=== PATIENT | female | born 1950 | race Caucasian/White ===

== ENCOUNTER 2024-12-11 11:21 | Emergency (ER) | payer OTHER, MEDICARE, SELFPAY ==
[2024-12-11 11:22] VITALS: BP 160/106; PULSE 104; RESP 17; TEMP 36.6; O2SAT 98; BMI 32.1
--- NOTE | 2024-12-11 11:32 | XR_ITS ---
WS: [id number] Exam: XR chest 1V portable [id number] Date/Time of Exam: 12/11/2024 12:04 PM Reason For Exam: weakness No priors. The lungs are clear and fully inflated. Moderate elevation of the RIGHT diaphragm. Normal cardiomedia stinal silhouette. No pleural effusion. Bony structures are intact. Anchoring screw in the LEFT humer al head. XR/XR chest 1V portable [id number] IMPRESSION: 1. Moderate elevation of the RIGHT diaphragm. No acute cardiopulmonary process identified otherwise.
--- NOTE | 2024-12-11 11:33 | ECG_ITS ---
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 Measurements Intervals [place] Rate: 91 P: -9 ID: [id number] QRS: 43 QRSD: 83 T: 68 QT: 344 QTc: 425 Interpretive Statements SINUS RHYTHM No previous ECG available for comparison Electronically Signed On 12-11-2024 12:39:52 CHEMICAL TESTER by Jhoan Bond M.D. [email or web address]
--- NOTE | 2024-12-11 11:35 | ED_ITS ---
HPI - Allergic Reaction 2 General: Chief complaint: Allergic Reaction Stated complaint: allergic reaction Time Seen by Provider: 12/11/24 11:22 Source: patient and EMS Mode of arrival: EMS Limitations: no limitations History of Present Illness: HPI narrative: 74-year-old female who states that she b een admitted to [facility] [place] last week she states there originally were concerned about possible stroke but of diagnosed with a migraine with aura she states it also diagnosed with a UTI states she was recently discharged and started on cefdinir states she took her first dose of cefdinir today like she is having allergic reaction states she had felt flush burning sensation all over having a headache some mild dyspnea she denies any vomiting or diarrhea or rash. She is answering all my questions appropriately here. Associated symptoms: Deny abdominal pain, nausea or vomiting Related Data Home Medications Medication Instructions Recorded Confirmed albuterol sulfate 90 mcg/actuation 2 puff inhalation DAILY 12/11/24 12/11/24 aerosol inhaler alendronate 70 mg tablet 70 mg PO Q7D 12/11/24 12/11/24 cefdinir 300 mg capsule 300 mg PO BID 12/11/24 12/11/24 clopidogrel 75 mg tablet 75 mg PO DAILY 12/11/24 12/11/24 cyanocobalamin (vitamin B-12) 1,000 mcg IM Q3M 12/11/24 12/11/24 1,000 mcg/mL injection solution esomeprazole magnesium 40 mg 40 mg PO DAILY 12/11/24 12/11/24 capsule,delayed release fluoxetine 40 mg capsule 40 mg PO DAILY 12/11/24 12/11/24 furosemide 80 mg tablet 80 mg PO DAILY 12/11/24 12/11/24 gabapentin 400 mg capsule 400 mg PO DAILY 12/11/24 12/11/24 levetiracetam 250 mg tablet 250 mg PO BID 12/11/24 12/11/24 methocarbamol 500 mg tablet 500 mg PO TID PRN Muscle Spasm 12/11/24 12/11/24 metoprolol tartrate 25 mg tablet 25 mg PO DAILY 12/11/24 12/11/24 pramipexole 0.75 mg tablet 0.75 mg PO TID 12/11/24 12/11/24 Previous Rx's Medication Instructions Recorded nitrofurantoin 100 mg PO BID 7 days #14 caps 01/30/25 monohydrate/macrocrystals 100 mg capsule (Macrobid) Allergies Allergy/AdvReac Type Severity Reaction Status Date / Time cephalexin [From Keflex] Allergy ALGY-Rash Verified 12/11/24 11:28 Review of Systems 2 Const: Denies: fever(s), chills, body aches or change in appetite ENMT: Denies: throat pain or dental pain Card: Denies: chest pain Resp: Reports: dyspnea GI: Denies: abdominal pain, nausea, vomiting or diarrhea Musc: Denies: neck pain or back pain Skin/Breast: Denies: rash Neuro: Denies: headache(s) Physical Exam 2 Const: COMMON NORMALS: no acute distress, patient oriented x3 and healthy appearing HENMT: COMMON NORMALS: normocephalic and atraumatic HEAD & SCALP: n ormocephalic and atraumatic Eye: COMMON NORMALS: Equal, round and reactive pupils present and EOMs intact bilaterally PUPIL: Yes Equal, round and reactive pupils present Neck/C-Spine: COMMON NORMALS: full ROM and supple Chest: COMMONS NORMALS: normal inspection of the chest and normal palpation of entire chest wall Resp: COMMON NORMALS: normal respiratory effort, No retractions, No use of accessory muscles and clear to auscultation bilaterally AUSCULTATION: clear to auscultation bilaterally Cardio: COMMON NORMALS: regular rate, regular rhythm and No murmurs present (Cardio) RATE: regular rate RHYTHM: regular rhythm GI: COMMON NORMALS: Normal to inspection, nondistended, normoactive bowel sounds present, Soft to palpation, non-tender and no masses PALPATION: Yes Soft to palpation Extremity: COMMON NORMALS: normal to inspection and full ROM Neuro: COMMON NORMALS: patient oriented x3, moves all extremities and no focal motor deficits Psych: COMMON NORMALS: mental status grossly normal, Normal thought process present and cooperative THOUGHT PROCESS: Normal thought process present Skin: COMMON NORMALS: no rashes or lesions noted and no wounds GENERAL SKIN EXAM: no rashes or lesions noted Course 2 Vital Signs: Vital signs: Vital Signs Temperature 97.9 F 12/11/24 11:22 Pulse Rate 104 H 12/11/24 11:22 Respiratory Rate 17 12/11/24 11:22 Blood Pressure 160/106 12/11/24 11:22 Pulse Oximetry 98 12/11/24 11:22 Oxygen Delivery Me thod Room Air 12/11/24 11:22 MDM - Allergic Reaction Medical Decision Making Patient presents here with likely allergic reaction to cefdinir she has a known allergy to Keflex she feels much improved here we will prescribe her Macrobid for UTI she is to stop the cefdinir she stable for discharge follow-up with PCP return if worsening she has no signs of acute stroke. Medical Records I reviewed the patient's medical records. Lab Data I reviewed the patient's lab results. 12/11/24 12:07 12/11/24 12:07 Radiology Impressions Chest X-Ray 12/11/24 11:32 IMPRESSION: 1. Moderate elevation of the RIGHT diaphragm. No acute cardiopulmonary process identified otherwise. Laboratory Results WBC 4.81 10^3/uL (3.29-11.43) 12/11/24 12:07 RBC 4.17 10^6/uL (3.85-5.65) 12/11/24 12:07 Hgb 11.90 g/dL (11.27-16.99) 12/11/24 12:07 Hct 36.5 % (36-47) 12/11/24 12:07 MCV 87.5 fl (85-98) 12/11/24 12:07 MCH 28.5 pg (27-33) 12/11/24 12:07 MCHC 32.6 g/dL (30-55) 12/11/24 12:07 RDW 13.4 % (12.1-15.1) 12/11/24 12:07 Plt Count 153 10^3/cmm (157-399) L 12/11/24 12:07 MPV 9.8 fL (7.4-10.4) 12/11/24 12:07 Neut % (Auto) 64.2 % 12/11/24 12:07 Lymph % (Auto) 25.6 % 12/11/24 12:07 Hughes % (Auto) 7.3 % 12/11/24 12:07 Eos % (Auto) 2.3 % 12/11/24 12:07 Baso % (Auto) 0.6 % 12/11/24 12:07 Neut # (Auto) 3.09 10^3/uL (1.8-7.7) 12/11/24 12:07 Lymph # (Auto) 1.2 10^3/uL (0.8-4.8) 12/11/24 12:07 Hughes # (Auto) 0.4 10^3/uL (0.2-0.9) 12/11/24 12:07 Eos # (Auto) 0.1 10^3/uL (0.0-0.8) 12/11/24 12:07 Baso # (Auto) 0.0 10^3/uL (0.0-0.1) 12/11/24 12:07 Nucleated RBC % (auto) 0 % 12/11/24 12:07 Nucleated RBCs # 0.0 /100WBC 12/11/24 12:07 Sodium 136 mmol/L (136-145) 12/11/24 12:07 Potassium 3.9 mmol/L (3.5-5.1) 12/11/24 12:07 Chloride 101 mmol/L (98-107) 12/11/24 12:07 Carbon Dioxide 24 mmol/L (22-29) 12/11/24 12:07 Anion Gap 14.9 (5-19) 12/11/24 12:07 BUN 9 mg/dL (8-23) 12/11/24 12:07 Creatinine 0.6 mg/dL (0.5-0.9) 12/11/24 12:07 GFR Calculation Not Reportable 12/11/24 12:07 Glucose 140 mg/dL (65-115) H 12/11/24 12:07 Calculated Osmolality 283 mOsm/kg (285-295) L 12/11/24 12:07 Calcium 8.7 mg/dL (8.5-10.5) 12/11/24 12:07 Total Bilirubin 0.2 mg/dL (0.15-1.2) 12/11/24 12:07 AST 14 U/L (0-32) 12/11/24 12:07 ALT 7 U/L (0-33) 12/11/24 12:07 Alkaline Phosphatase 92 U/L (35-105) 12/11/24 12:07 Total Protein 6.6 g/dL (6.6-8.7) 12/11/24 12:07 Albumin 3.6 g/dL (3.5-5.2) 12/11/24 12:07 Globulin 3.0 g/dL (1.3-4.6) 12/11/24 12:07 Lipase 24 U/L (13-60) 12/11/24 12:07 All radiology interpretation(s) finalized by discharge EKG Data EKG 1: I personally reviewed and interpreted this EKG as follows: EKG interpretation date: 12/11/24 EKG interpretation time: 11:36 Interpretation: nsr hr [address] elevation qrs 83 qtc 393 Discharge Plan Discharge Patient Disposition: Home Clinical Impression: Allergic reaction Condition: Stable Prescriptions: New nitrofurantoin monohyd/m-cryst [Macrobid] 100 mg capsule 100 mg PO BID 7 Days Qty: 14 0RF Rx Instructions: must administer with a meal/food No Action fluoxetine 40 mg capsule 40 mg PO DAILY methocarbamol 500 mg tablet 500 mg PO TID PRN (Reason: Muscle Spasm) alendronate 70 mg tablet 70 mg PO Q7D gabapentin 400 mg capsule 400 mg PO DAILY clopidogrel 75 mg tablet 75 mg PO DAILY levetiracetam 250 mg tablet 250 mg PO BID furosemide 80 mg tablet 80 mg PO DAILY cyanocobalamin (vitamin B-12) 1,000 mcg/mL solution 1,000 mcg IM Q3M esomeprazole magnesium 40 mg capsule,delayed release(DR/EC) 40 mg PO DAILY albuterol sulfate 90 mcg/actuation HFA aerosol inhaler 2 puff INHALATION DAILY cefdinir 300 mg capsule 300 mg PO BID metoprolol tartrate 25 mg tablet 25 mg PO DAILY pramipexole 0.75 mg tablet 0.75 mg PO TID Discharge Orders: Discharge ED (Routine); Ordered 12/11/24 Ordered By: Rolando Cordoba Discharge Diet: Advance as tolerated Discharge Activity: Resume usual activity Patient Instructions: General Allergic Reaction (ED) Coding Level of Care Code ED Binder Stripper Machine for Fabian Brown
[2024-12-11] MEDS: ketorolac 30 mg/mL INJ 15 MG IVP (12:07)
[2024-12-11 12:13] LABS: Basophils % 0.6 %; Eosinophils # 0.1 10^3/uL (0.0-0.8); Eosinophils % 2.3 %; Hematocrit 36.5 % (36-47); Lymphocytes # 1.2 10^3/uL (0.8-4.8); Lymphocytes % 25.6 %; Mean Corpuscular HGB Conc 32.6 g/dL (30-55); Mean Corpuscular Hemoglobin 28.5 pg (27-33); Mean Corpuscular Volume 87.5 fl (85-98); Mean Platelet Volume 9.8 fL (7.4-10.4); Monocytes # 0.4 10^3/uL (0.2-0.9); Monocytes % 7.3 %; Neutrophils # 3.09 10^3/uL (1.8-7.7); Neutrophils % 64.2 %; Nucleated Red Blood Cells % 0 %; Platelet Count 153 10^3/cmm (157-399); Red Blood Count 4.17 10^6/uL (3.85-5.65); Red Cell Distribution Width 13.4 % (12.1-15.1); White Blood Count 4.81 10^3/uL (3.29-11.43)
[2024-12-11 12:31] LABS: Alanine Aminotransferase 7 U/L (0-33); Albumin Level 3.6 g/dL (3.5-5.2); Alkaline Phosphatase 92 U/L (35-105); Anion Gap 14.9 (5-19); Aspartate Amino Transferase 14 U/L (0-32); Blood Urea Nitrogen 9 mg/dL (8-23); Calcium 8.7 mg/dL (8.5-10.5); Carbon Dioxide 24 mmol/L (22-29); Chloride 101 mmol/L (98-107); Creatinine Clr Calc Pharmacy 57.9743; Glucose 140 mg/dL (65-115); Lipase 24 U/L (13-60); Osmolality Calculated 283 mOsm/kg (285-295); Potassium 3.9 mmol/L (3.5-5.1); Sodium 136 mmol/L (136-145); Total Bilirubin 0.2 mg/dL (0.15-1.2); Total Protein 6.6 g/dL (6.6-8.7)
[2024-12-11 13:46] VITALS: BP 141/91; PULSE 92; O2SAT 95
== END 2024-12-11 13:48 | disposition home or self-care (01) ==
PROVIDERS: Emergency Provider Emergency Medicine
DX: T78.40XA Allergy, unspecified, initial encounter (principal); X58.XXXA Exposure to other specified factors, initial encounter
CPT/HCPCS: 36415; 71045; 80053; 83690; 85025; 93005; 96374; 99285; J1885